=== PATIENT | female | born 1935 | race Caucasian/White ===

== ENCOUNTER → 2017-04-10 | Outpatient (CLI) | payer MEDICARE | END | disposition home or self-care (01) | LOC: KCIC US 11:57 | DX: Z12.31 Encounter for screening mammogram for malignant neoplasm of breast (principal); I65.22 Occlusion and stenosis of left carotid artery; Z87.891 Personal history of nicotine dependence | CPT/HCPCS: 77067; 93880 ==

== ENCOUNTER 2017-12-15 01:34 | Inpatient (IN) | payer MEDICARE ==
[~2017-12-15] VITALS: Ht 157.5 cm; Wt 61.7 kg
[2017-12-15] MEDS ORDERED: HYDROcodone/APAP 5/325MG 1 TAB TABLET PO ONE (03:00)
[2017-12-15] MEDS ORDERED: ONDANSETRON ODT 4 MG TAB.RAPDIS. PO ONE (03:00)
--- NOTE | 2017-12-15 04:08 | RAD ---
INDICATION: SEVERE RIGHT HIP PAIN POST FALL COMPARISON: Plain film from earlier same day TECHNIQUE: Axial CT images obtained through the pelvis without contrast. One or more of the following individualized dose reduction techniques were utilized for this examination: 1. Automated exposure control; 2. Adjustment of the mA and/or kV according to patient size; 3. Use of iterative reconstruction technique. FINDINGS: Mildly displaced right inferior pubic ramus fracture. There is also lucency through the anterior aspect of the right acetabulum from additional fracture site. Some thickening of the adjacent musculature which could be secondary to associated blood. No evidence of dislocation. Degenerative changes bilateral hips. Degenerative changes of lower lumbar spine partially visualized scoliotic curvature. Colonic diverticulosis. Bladder is distended at time of exam. Severe calcific atherosclerosis. IMPRESSION: 1. Right inferior pubic ramus fracture as well as fracture through the anterior aspect of the right acetabulum. There is also thickening of the adjacent musculature including the right obturator externus which measures up to 3 cm in thickness in comparison to 2 cm in thickness on the left which is likely secondary to blood associated with the adjacent fracture. Electronically signed by: Raghavendra Bond MD (12/15/2017 4:04 AM) [facility]
[2017-12-15] MEDS ORDERED: fentaNYL PF VIAL 100 MCG/2 ML VIAL ONE (04:36)
--- NOTE | 2017-12-15 04:48 | PHYS DOC ---
Past Medical History Past Medical History: Hypertension, Other Additional Past Medical Histor: CHRONIC BACK/HIP PAIN Past Surgical History: Hysterectomy, Other Additional Past Surgical Histo: FEET, MULTIPLE BREAST BIOPSIES Alcohol Use: Occasionally Drug Use: None Adult General Chief Complaint Chief Complaint: MECHANICAL FALL HPI HPI Patient is a 82 year old female brought in by ambulance with a chief complaint of mechanical fall apparently she went down she thinks she tripped she is not sure she did not lose consciousness she doesn't think she hit her head. She is not on any blood thinners. She was able to crawl to her phone and contact her daughter who eventually was able to come over and help her out. She was complaining of moderate to severe right hip pain worse with palpation and movement nonradiating described as sharp worse with trying to stand on it which she did briefly after the event. No other exacerbating or alleviating factors no numbness or tingling no abdominal pain no chest pain no neck pain no headache Review of Systems Review of Systems Constitutional: Denies fever or chills [] Eyes: Denies change in visual acuity, redness, or eye pain [] HENT: Denies nasal congestion or sore throat [] Respiratory: Denies cough or shortness of breath [] Cardiovascular: No additional information not addressed in HPI [] GI: Denies abdominal pain, nausea, vomiting, bloody stools or diarrhea [] : Denies dysuria or hematuria [] Musculoskeletal: Integument: Denies rash or skin lesions [] Neurologic: Denies headache, focal weakness or sensory changes [] All other systems were reviewed and found to be within normal limits, except as documented in this note. Current Medications Current Medications Current Medications Medications (Trade) Dose Ordered Sig/Severiano Start Time Stop Time Status Last Admin Dose Admin Acetaminophen/ Hydrocodone Bitart (Lortab 5/325) 2 tab 1X ONCE 12/15/17 03:00 12/15/17 03:01 DC 12/15/17 03:07 2 TAB Fentanyl Citrate (Fentanyl 2ml Vial) 100 mcg STK-MED ONCE 12/15/17 04:36 12/15/17 04:38 DC Ondansetron HCl (Zofran Odt) 4 mg 1X ONCE 12/15/17 03:00 12/15/17 03:01 DC 12/15/17 03:07 4 MG Sodium Chloride 1,000 ml @ 75 mls/hr [id number] 10/1/18 05:00 12/16/17 04:59 Allergies Allergies Allergies Coded Allergies Type Severity Reaction Last Updated Verified nitrofurantoin Allergy Intermediate 12/15/17 Yes Physical Exam Physical Exam Constitutional: Well developed, well nourished, no acute distress, non-toxic appearance. [] HENT: Normocephalic, atraumatic, bilateral external ears normal, oropharynx moist, no oral exudates, nose normal. [] Eyes: PERRLA, EOMI, conjunctiva normal, no discharge. [] Neck: Normal range of motion, no tenderness, supple, no stridor. [] Cardiovascular:Heart rate regular rhythm, no murmur [] Lungs & Thorax: Bilateral breath sounds clear to auscultation [] Abdomen: Bowel sounds normal, soft, no tenderness, no masses, no pulsatile masses. [] Skin: Warm, dry, no erythema, no rash. [] Back: No tenderness, no CVA tenderness. [] Extremities: REDUCED ROM RIGHT HIP DUE TO PAIN. NO OBVIOUS TRAUMA SEEN. PULSES PEDAL PRESENT. SENSATION INTACT DISTALLY Neurologic: Alert and oriented X 3, normal motor function, normal sensory function, no focal deficits noted. [] Psychologic: Affect normal, judgement normal, mood normal. [] Current Patient Data Vital Signs Vital Signs Date Time Temp Pulse Resp B/P (MAP) Pulse Ox O2 Delivery O2 Flow Rate FiO2 12/15/17 03:07 18 98 12/15/17 01:49 97.8 87 133/66 (88) Room Air 97.8 EKG EKG [] Radiology/Procedures Radiology/Procedures [] Impressions: MY INTERP PLAIN FILM, POSSIBLE INFERIOR PUBIC RAMUS FX, NO OTHER ACUTE FX IDENTIFIED DUE TO HIGH CLINICAL CONCERN FOR HIP FX, ORDERED CT. D/W RADIOLOGIST, THE ACETABULAR FX IS NONDISPLACED HE FEELS. CT SCAN" IMPRESSION: 1. Right inferior pubic ramus fracture as well as fracture through the anterior aspect of the right acetabulum. There is also thickening of the adjacent musculature including the right obturator externus which measures up to 3 cm in thickness in comparison to 2 cm in thickness on the left which is likely secondary to blood associated with the adjacent fracture. Electronically signed by: Mattie Johnston MD (12/15/2017 4:04 AM) [facility] [place] DICTATED and SIGNED BY: MATTIE JOHNSTON MD DATE: 12/15/17 0357 Course & Med Decision Making Course & Med Decision Making Pertinent Labs and Imaging studies reviewed. (See chart for details) 82 YO F S/P FALL PW HIP PAIN FOUND TO HAVE INFERIOR PUBIC RAMUS AND ACETABULAR FX. Per the radiologist the acetabular fractures mostly nondisplaced. At this time plan for lab work and admission to the hospital for pain control and orthopedic consultation. Dragon Disclaimer Dragon Disclaimer This electronic medical record was generated, in whole or in part, using a voice recognition dictation system. Departure Departure Impression: Primary Impression: Pelvic fracture Disposition: ADMITTED INPATIENT Admitting Physician: Rizwana Flores Condition: STABLE Referrals: MEMO SINGH MD (PCP) ANTONIO CHAVEZ MD Dec 15, 2017 04:48
[2017-12-15 04:58] LABS: BASO % 0 % (0-3); EOS % 0 % (0-3); HEMATOCRIT 39.3 % (36.0-47.0); HEMOGLOBIN 13.9 g/dL (12.0-15.5); LYMPH # 0.7 x10^3/uL (1.0-4.8); LYMPH % 7 % (24-48); MEAN CORPUSCULAR HEMOGLOBIN 35 pg (25-35); MEAN CORPUSCULAR HGB CONC 35 g/dL (31-37); MEAN CORPUSCULAR VOLUME 99 fL (79-100); MONO # 0.7 x10^3/uL (0.0-1.1); MONO % 7 % (0-9); NEUT # 9.1 x10^3uL (1.8-7.7); NEUT % 86 % (31-73); PLATELET COUNT 192 x10^3/uL (140-400); RED BLOOD COUNT 3.95 x10^6/uL (3.50-5.40); RED CELL DISTRIBUTION WIDTH 12.5 % (11.5-14.5); WHITE BLOOD COUNT 10.6 x10^3/uL (4.0-11.0)
[2017-12-15] MEDS ORDERED: fentaNYL PF VIAL 100 MCG/2 ML VIAL IV ONE (05:00)
[2017-12-15] MEDS ORDERED: IV NORMAL SALINE 1000ML BAG 1,000 ML IV ONE (05:00)
[2017-12-15] MEDS: IV NORMAL SALINE 1000ML BAG 1,000 ML IV SCH ×2 (05:00→08:25)
[2017-12-15 05:35] VITALS: BP 127/74
[2017-12-15 05:39] LABS: CREATININE 0.9 mg/dL (0.6-1.0); GFR 59.9; POTASSIUM 3.2 mmol/L (3.5-5.1)
[2017-12-15 05:45] LABS: ALBUMIN 3.8 g/dL (3.4-5.0); ALBUMIN/GLOBULIN RATIO 1.3 (1.0-1.7); TOTAL BILIRUBIN 0.6 mg/dL (0.2-1.0); TOTAL PROTEIN 6.8 g/dL (6.4-8.2)
[2017-12-15] MEDS ORDERED: ASPI81TA59 PO (06:31)
[2017-12-15] MEDS ORDERED: LOSA1TAB22 PO (06:31)
[2017-12-15] MEDS ORDERED: MULT1TAB52 PO (06:31)
[2017-12-15] MEDS ORDERED: CALC-98 PO (06:31)
[2017-12-15] MEDS: fentaNYL PF VIAL 100 MCG/2 ML VIAL IV PRN ×4 (06:35→13:07)
[2017-12-15 07:00] VITALS: BP 114/67
--- NOTE | 2017-12-15 07:44 | RAD ---
Portable right hip, 2 views, 12/15/2017: HISTORY: Fall, hip pain There is mild degenerative change at the right hip joint. No acute hip fracture or dislocation is identified. Slight deformity of the inferior pubic ramus is probably due to old trauma. No definite acute fracture line is seen. IMPRESSION: 1. Slight deformity of the inferior pubic ramus is probably due to old trauma. An acute nondisplaced fracture cannot be entirely excluded. 2. Mild degenerative change at the right hip joint. Electronically signed by: Kane Hudson MD (12/15/2017 7:40 AM) [facility]
[2017-12-15 08:43] LABS: BILIRUBIN,URINE NEGATIVE (NEG); CLARITY,URINE CLEAR; COLOR,URINE YELLOW; NITRITE,URINE NEGATIVE (NEG); PROTEIN,URINE NEGATIVE (NEG-TRACE); UROBILINOGEN,URINE 0.2 mg/dL (0.2 mg/dL)
[2017-12-15 08:47] LABS: % BANDS 13 % (0-9); % LYMPHS 6 % (24-48); % MONOS 7 % (0-10); % SEGS 74 % (35-66); PLT ESTIMATE ADEQUATE (ADEQUATE)
[2017-12-15 08:55] LABS: SQUAMOUS EPITHELIAL CELL,UR FEW /LPF
[2017-12-15 08:58] LABS: BACTERIA,URINE MODERATE /HPF (0-FEW); RBC,URINE OCC /HPF (0-2)
[2017-12-15 11:00] VITALS: BP 148/82
[2017-12-15] MEDS ORDERED: HYDROcodone/APAP 5/325MG 1 TAB TABLET PO PRN (12:15)
[2017-12-15] MEDS: MULTIVITAMIN with MINERAL TABLET. PO SCH (12:15)
[2017-12-15] MEDS: ASPIRIN CHEWABLE 81 MG TABLET. PO SCH (12:15)
[2017-12-15] MEDS ORDERED: ONDANSETRON PF 4 MG/2 ML VIAL. IV PRN (12:15)
[2017-12-15] MEDS ORDERED: traMADol 50 MG TABLET PO PRN (12:15)
[2017-12-15] MEDS: LOSARTAN POTASSIUM 50 MG TABLET. PO SCH (12:15)
[2017-12-15] MEDS ORDERED: ACETAMINOPHEN 325 MG TABLET. PO PRN (12:15)
[2017-12-15] MEDS: hydroCHLOROthiazide 25 MG TABLET PO SCH (12:15)
[2017-12-15] MEDS ORDERED: DOCUSATE SODIUM 100 MG CAPSULE. PO PRN (12:15)
[2017-12-15] MEDS: HYDROcodone/APAP 5/325MG 1 TAB TABLET PO PRN ×3 (12:16→20:41)
[2017-12-15 15:00] VITALS: BP 126/51
--- NOTE | 2017-12-15 15:32 | PDOC1 ---
History and Physical Date of Admission Date of Admission 12/15/17 Identification/Chief Complaint Chief Complaint fall Source Source: Chart review, Patient History of Present Illness History of Present Illness HPI Patient is a 82 year old female brought in by ambulance with a chief complaint of mechanical fall.. poor historian. Pt said she was standing on the tile in the [place] ,then fell on the floor, cannot tell me how or hit where. She denies syncope, has some bruise on knee and rt elbow. She crawled to get phone to call her daughter who helped her to the bed, and called EMS. pt has severe pelvic pain and could not stand up. Denies fever, chills, sob, chest pain. CT showed rt inferior ramus fx. Dirty UA, denies dysuria, has frequent urination but said drinks lots of water. denies urgency. Past Medical History Cardiovascular: HTN Past Surgical History Past Surgical History joint sx Past Surgical History: Hysterectomy Family History Family History: Hypertension Social History Smoke: No ALCOHOL: none Drugs: None Current Medications Current Medications Current Medications Medications (Trade) Dose Ordered Sig/Severiano Start Time Stop Time Status Last Admin Dose Admin Acetaminophen (Tylenol) 650 mg PRN Q6HRS PRN 12/15/17 12:15 Acetaminophen/ Hydrocodone Bitart (Lortab 5/325) 1 tab PRN Q4HRS PRN 12/15/17 12:15 Cancel Aspirin (Children'S Aspirin) 81 mg DAILY 12/15/17 12:30 12/15/17 12:15 81 MG Docusate Sodium (Colace) 100 mg PRN DAILY PRN 12/15/17 12:15 Fentanyl Citrate (Fentanyl 2ml Vial) 50 mcg PRN Q2HR PRN 12/15/17 06:15 12/16/17 06:14 12/15/17 13:07 50 MCG Hydrochlorothiazide (Hydrodiuril) 25 mg DAILY 12/15/17 12:30 12/15/17 12:15 25 MG Influenza Virus Vaccine (Afluria Trivalent [id number] Syringe) 0.5 ml ONCE ONCE 12/15/17 09:00 12/15/17 09:01 DC Losartan Potassium (Cozaar) 100 mg DAILY 12/15/17 12:30 12/15/17 12:15 100 MG Morphine Sulfate (Morphine Sulfate) 2 mg PRN Q2HR PRN 12/15/17 12:15 Multivitamins (Thera M Plus) 1 tab DAILY 12/15/17 12:30 12/15/17 12:15 1 TAB Ondansetron HCl (Zofran Odt) 4 mg 1X ONCE 12/15/17 03:00 12/15/17 03:01 DC 12/15/17 03:07 4 MG Ondansetron HCl (Zofran) 4 mg PRN Q6HRS PRN 12/15/17 12:15 Oxycodone/ Acetaminophen (Percocet 5/325) 1 tab PRN Q4HRS PRN 12/15/17 12:15 Sodium Chloride 1,000 ml @ 75 mls/hr [id number] 12/15/17 05:00 12/16/17 04:59 12/15/17 08:25 75 MLS/HR Tramadol HCl (Ultram) 50 mg PRN Q6HRS PRN 12/15/17 12:15 Allergies Allergies Allergies Coded Allergies Type Severity Reaction Last Updated Verified nitrofurantoin Allergy Intermediate 12/15/17 Yes ROS Review of System CONSTITUTIONAL: No fever or chills EYES: No recent changes SKIN: No rash or itching CARDIOVASCULAR: No chest pain, syncope, palpitations, or edema RESPIRATORY: No SOB or cough GASTROINTESTINAL: No nausea, vomiting or abdominal pain NEUROLOGICAL: No headaches or weakness ENDOCRINE: No cold or heat intolerance GENITOURINARY: No urgency or frequency of urination MUSCULOSKELETAL: No back pain or joint pain LYMPHATICS: No enlarged lymph nodes PSYCHIATRIC: No anxiety or depression Physical Exam Physical Exam GEN.: No apparent distress. Alert and oriented. HEENT: Head is normocephalic, atraumatic NECK: Supple. LUNGS: Clear to auscultation. HEART: RRR, S1, S2 present. Peripheral pulses intact ABDOMEN: Soft, nontender. Positive bowel sounds. severe rt side pelvic tenderness. EXTREMITIES: Without any cyanosis. NEUROLOGIC: Normal speech, normal tone PSYCHIATRIC: Normal affect, normal mood. SKIN: No ulcerations Vitals Vitals Vital Signs Date Time Temp Pulse Resp B/P (MAP) Pulse Ox O2 Delivery O2 Flow Rate FiO2 12/15/17 13:37 Room Air 12/15/17 12:15 100 148/82 12/15/17 11:08 2.0 12/15/17 11:00 97.7 18 100 97.7 Labs Labs Laboratory Tests Test 12/15/17 04:45 12/15/17 08:25 White Blood Count 10.6 x10^3/uL (4.0-11.0) Red Blood Count 3.95 x10^6/uL (3.50-5.40) Hemoglobin 13.9 g/dL (12.0-15.5) Hematocrit 39.3 % (36.0-47.0) Mean Corpuscular Volume 99 fL (79-100) Mean Corpuscular Hemoglobin 35 pg (25-35) Mean Corpuscular Hemoglobin Concent 35 g/dL (31-37) Red Cell Distribution Width 12.5 % (11.5-14.5) Platelet Count 192 x10^3/uL (140-400) Neutrophils (%) (Auto) 86 % (31-73) Lymphocytes (%) (Auto) 7 % (24-48) Monocytes (%) (Auto) 7 % (0-9) Eosinophils (%) (Auto) 0 % (0-3) Basophils (%) (Auto) 0 % (0-3) Neutrophils # (Auto) 9.1 x10^3uL (1.8-7.7) Lymphocytes # (Auto) 0.7 x10^3/uL (1.0-4.8) Monocytes # (Auto) 0.7 x10^3/uL (0.0-1.1) Eosinophils # (Auto) 0.0 x10^3/uL (0.0-0.7) Basophils # (Auto) 0.0 x10^3/uL (0.0-0.2) Segmented Neutrophils % 74 % (35-66) Band Neutrophils % 13 % (0-9) Lymphocytes % 6 % (24-48) Monocytes % 7 % (0-10) Platelet Estimate Adequate (ADEQUATE) Sodium Level 133 mmol/L (136-145) Potassium Level 3.2 mmol/L (3.5-5.1) Chloride Level 93 mmol/L (98-107) Carbon Dioxide Level 23 mmol/L (21-32) Anion Gap 17 (6-14) Blood Urea Nitrogen 14 mg/dL (7-20) Creatinine 0.9 mg/dL (0.6-1.0) Estimated GFR (Cockcroft-Gault) 59.9 BUN/Creatinine Ratio 16 (6-20) Glucose Level 120 mg/dL (70-99) Calcium Level 9.0 mg/dL (8.5-10.1) Total Bilirubin 0.6 mg/dL (0.2-1.0) Aspartate Amino Transf (AST/SGOT) 37 U/L (15-37) Alanine Aminotransferase (ALT/SGPT) 56 U/L (14-59) Alkaline Phosphatase 68 U/L (46-116) Creatine Kinase 392 U/L (26-192) Total Protein 6.8 g/dL (6.4-8.2) Albumin 3.8 g/dL (3.4-5.0) Albumin/Globulin Ratio 1.3 (1.0-1.7) Urine Collection Type Unknown Urine Color Yellow Urine Clarity Clear Urine pH 6.0 Urine Specific Whiteside 1.010 Urine Protein Negative mg/dL (NEG-TRACE) Urine Glucose (UA) Negative mg/dL (NEG) Urine Ketones (Stick) 15 mg/dL (NEG) Urine Blood Negative (NEG) Urine Nitrite Negative (NEG) Urine Bilirubin Negative (NEG) Urine Urobilinogen Dipstick 0.2 mg/dL (0.2 mg/dL) Urine Leukocyte Esterase Trace (NEG) Urine RBC Occ /HPF (0-2) Urine WBC 1-4 /HPF (0-4) Urine Squamous Epithelial Cells Few /LPF Urine Transitional Epithelial Cells Mod /LPF Urine Renal Epithelial Cells Few /LPF Urine Bacteria Moderate /HPF (0-FEW) Urine Mucus Slight /LPF Laboratory Tests Test 12/15/17 04:45 12/15/17 08:25 White Blood Count 10.6 x10^3/uL (4.0-11.0) Red Blood Count 3.95 x10^6/uL (3.50-5.40) Hemoglobin 13.9 g/dL (12.0-15.5) Hematocrit 39.3 % (36.0-47.0) Mean Corpuscular Volume 99 fL (79-100) Mean Corpuscular Hemoglobin 35 pg (25-35) Mean Corpuscular Hemoglobin Concent 35 g/dL (31-37) Red Cell Distribution Width 12.5 % (11.5-14.5) Platelet Count 192 x10^3/uL (140-400) Neutrophils (%) (Auto) 86 % (31-73) Lymphocytes (%) (Auto) 7 % (24-48) Monocytes (%) (Auto) 7 % (0-9) Eosinophils (%) (Auto) 0 % (0-3) Basophils (%) (Auto) 0 % (0-3) Neutrophils # (Auto) 9.1 x10^3uL (1.8-7.7) Lymphocytes # (Auto) 0.7 x10^3/uL (1.0-4.8) Monocytes # (Auto) 0.7 x10^3/uL (0.0-1.1) Eosinophils # (Auto) 0.0 x10^3/uL (0.0-0.7) Basophils # (Auto) 0.0 x10^3/uL (0.0-0.2) Segmented Neutrophils % 74 % (35-66) Band Neutrophils % 13 % (0-9) Lymphocytes % 6 % (24-48) Monocytes % 7 % (0-10) Platelet Estimate Adequate (ADEQUATE) Sodium Level 133 mmol/L (136-145) Potassium Level 3.2 mmol/L (3.5-5.1) Chloride Level 93 mmol/L (98-107) Carbon Dioxide Level 23 mmol/L (21-32) Anion Gap 17 (6-14) Blood Urea Nitrogen 14 mg/dL (7-20) Creatinine 0.9 mg/dL (0.6-1.0) Estimated GFR (Cockcroft-Gault) 59.9 BUN/Creatinine Ratio 16 (6-20) Glucose Level 120 mg/dL (70-99) Calcium Level 9.0 mg/dL (8.5-10.1) Total Bilirubin 0.6 mg/dL (0.2-1.0) Aspartate Amino Transf (AST/SGOT) 37 U/L (15-37) Alanine Aminotransferase (ALT/SGPT) 56 U/L (14-59) Alkaline Phosphatase 68 U/L (46-116) Creatine Kinase 392 U/L (26-192) Total Protein 6.8 g/dL (6.4-8.2) Albumin 3.8 g/dL (3.4-5.0) Albumin/Globulin Ratio 1.3 (1.0-1.7) Urine Collection Type Unknown Urine Color Yellow Urine Clarity Clear Urine pH 6.0 Urine Specific Whiteside 1.010 Urine Protein Negative mg/dL (NEG-TRACE) Urine Glucose (UA) Negative mg/dL (NEG) Urine Ketones (Stick) 15 mg/dL (NEG) Urine Blood Negative (NEG) Urine Nitrite Negative (NEG) Urine Bilirubin Negative (NEG) Urine Urobilinogen Dipstick 0.2 mg/dL (0.2 mg/dL) Urine Leukocyte Esterase Trace (NEG) Urine RBC Occ /HPF (0-2) Urine WBC 1-4 /HPF (0-4) Urine Squamous Epithelial Cells Few /LPF Urine Transitional Epithelial Cells Mod /LPF Urine Renal Epithelial Cells Few /LPF Urine Bacteria Moderate /HPF (0-FEW) Urine Mucus Slight /LPF VTE Prophylaxis Ordered VTE Prophylaxis Devices: Yes VTE Pharmacological Prophylaxi: Yes Assessment/Plan Assessment/Plan traumatic rt inferior ramus fx from fall HTN hypokalemia chronic back pain plan: fu with ortho, no sx planned cont home meds replete K PAIN CONTRol told her if too much pain to move and cannot use bed broderick, will do han but needs to understand high risk for UTI, daughter not want han hold abx for now PTOT check vitd sw for rehab TONY ECHAVARRIA MD Dec 15, 2017 15:32
[2017-12-15] MEDS ORDERED: POTASSIUM CHLORIDE 20 MEQ TABLET.ER. PO ONE (16:00)
[2017-12-15 19:00] VITALS: BP 137/68
[2017-12-15] MEDS: MORPHINE SULFATE 2 MG/ML VIAL. IV PRN (22:05)
[2017-12-15 22:39] VITALS: BP 158/74
[2017-12-16] MEDS: HYDROcodone/APAP 5/325MG 1 TAB TABLET PO PRN ×5 (01:32→22:20)
[2017-12-16 03:00] VITALS: BP 140/79
[2017-12-16 03:12] LABS: BASO # 0.1 x10^3/uL (0.0-0.2); BASO % 1 % (0-3); EOS # 0.1 x10^3/uL (0.0-0.7); EOS % 1 % (0-3); HEMATOCRIT 38.2 % (36.0-47.0); HEMOGLOBIN 13.7 g/dL (12.0-15.5); LYMPH # 0.9 x10^3/uL (1.0-4.8); LYMPH % 14 % (24-48); MEAN CORPUSCULAR HEMOGLOBIN 36 pg (25-35); MEAN CORPUSCULAR HGB CONC 36 g/dL (31-37); MEAN CORPUSCULAR VOLUME 101 fL (79-100); MONO # 0.5 x10^3/uL (0.0-1.1); MONO % 8 % (0-9); NEUT # 4.8 x10^3uL (1.8-7.7); NEUT % 76 % (31-73); PLATELET COUNT 155 x10^3/uL (140-400); RED CELL DISTRIBUTION WIDTH 12.6 % (11.5-14.5); WHITE BLOOD COUNT 6.4 x10^3/uL (4.0-11.0)
[2017-12-16 03:29] LABS: CALCIUM 8.7 mg/dL (8.5-10.1); CREATININE 0.9 mg/dL (0.6-1.0); GFR 59.9; POTASSIUM 4.4 mmol/L (3.5-5.1)
[2017-12-16] MEDS: MORPHINE SULFATE 2 MG/ML VIAL. IV PRN ×3 (06:47→20:19)
[2017-12-16 07:00] VITALS: BP 151/67
[2017-12-16] MEDS: ASPIRIN CHEWABLE 81 MG TABLET. PO SCH (09:00)
[2017-12-16] MEDS: hydroCHLOROthiazide 25 MG TABLET PO SCH (09:00)
[2017-12-16] MEDS: LOSARTAN POTASSIUM 50 MG TABLET. PO SCH (09:00)
[2017-12-16] MEDS: MULTIVITAMIN with MINERAL TABLET. PO SCH (09:00)
--- NOTE | 2017-12-16 09:09 | PDOC2 ---
CONSULT Date of Consult Date of Consult DATE: 12/16/17 TIME: 09:05 Reason for Consult Reason for Consult: Right-sided pelvis fracture Referring Physician Referring Physician: Екатерина Identification/Chief Complaint Chief Complaint Right hip pain Source Source: Patient History of Present Illness Reason for Visit: Patient is a very pleasant 82-year-old female who had a ground-level fall, she denies preceding symptoms. She noted immediate pain and inability to ambulate secondary to right-sided hip pain. She tells me she has had some lateral hip pain at both of her hips and was undergoing care administrative tech recently for this. This pain she has now feels tingly different. It is worse with any movement or sitting. It is also worse with any attempted weightbearing. Is a little bit better at rest. She denies any abnormal sensations shooting down her legs into her toes. The pain does radiate down her thigh little ways at times. Past Medical History Cardiovascular: HTN Past Surgical History Past Surgical History: Hysterectomy Family History Family History: Hypertension Social History No ALCOHOL: none Drugs: None Current Medications Current Medications Current Medications Acetaminophen/ Hydrocodone Bitart (Lortab 5/325) 2 tab 1X ONCE PO Last administered on 12/15/17at 03:07; Start 12/15/17 at 03:00; Stop 12/15/17 at 03:01 ; Status DC Ondansetron HCl (Zofran Odt) 4 mg 1X ONCE PO Last administered on 12/15/17at 03 :07; Start 12/15/17 at 03:00; Stop 12/15/17 at 03:01; Status DC Fentanyl Citrate (Fentanyl 2ml Vial) 50 mcg 1X ONCE IV Last administered on at 04:50; Start 12/15/17 at 05:00; Stop 12/15/17 at 05:01; Status DC Sodium Chloride 1,000 ml @ 1,000 mls/hr 1X ONCE IV Last administered on at 04:51; Start 12/15/17 at 05:00; Stop 12/15/17 at 05:59; Status DC Fentanyl Citrate (Fentanyl 2ml Vial) 100 mcg STK-MED ONCE .ROUTE ; Start at 04:36; Stop 12/15/17 at 04:38; Status DC Sodium Chloride 1,000 ml @ 75 mls/hr [id number] IV Last administered on at 08:25; Start 12/15/17 at 05:00; Stop 12/16/17 at 04:59; Status DC Fentanyl Citrate (Fentanyl 2ml Vial) 50 mcg PRN Q2HR PRN IV SEVERE PAIN Last administered on 12/15/17at 13:07; Start 12/15/17 at 06:15; Stop 12/15/17 at 16:24 ; Status DC Influenza Virus Vaccine (Afluria Trivalent [id number] Syringe) 0.5 ml ONCE ONCE VAX IM ; Start 12/15/17 at 09:00; Stop 12/15/17 at 09:01; Status DC Acetaminophen/ Hydrocodone Bitart (Lortab 5/325) 1 tab PRN Q4HRS PRN PO MOD TO SEVERE PAIN, 1st CHOICE Last administered on 12/16/17at 09:01; Start 12/15/17 at 12:00 Aspirin (Children'S Aspirin) 81 mg DAILY PO Last administered on 12/16/17at 09: 00; Start 12/15/17 at 12:30 Losartan Potassium (Cozaar) 100 mg DAILY PO Last administered on 12/16/17at 09: 00; Start 12/15/17 at 12:30 Multivitamins (Thera M Plus) 1 tab DAILY PO Last administered on 12/16/17at 09: 00; Start 12/15/17 at 12:30 Hydrochlorothiazide (Hydrodiuril) 25 mg DAILY PO Last administered on at 09:00; Start 12/15/17 at 12:30 Acetaminophen (Tylenol) 650 mg PRN Q6HRS PRN PO FEVER; Start 12/15/17 at 12:15 Ondansetron HCl (Zofran) 4 mg PRN Q6HRS PRN IV NAUSEA/VOMITING; Start 12/15/17 at 12:15 Morphine Sulfate (Morphine Sulfate) 2 mg PRN Q2HR PRN IV SEVERE PAIN Last administered on 12/16/17at 06:48; Start 12/15/17 at 12:15 Tramadol HCl (Ultram) 50 mg PRN Q6HRS PRN PO MILD TO MODERATE PAIN; Start 12/15 at 12:15 Docusate Sodium (Colace) 100 mg PRN DAILY PRN PO CONSTIPATION; Start 12/15/17 at 12:15 Acetaminophen/ Hydrocodone Bitart (Lortab 5/325) 1 tab PRN Q4HRS PRN PO PAIN; Start 12/15/17 at 12:15; Status Cancel Oxycodone/ Acetaminophen (Percocet 5/325) 1 tab PRN Q4HRS PRN PO MOD TO SEVERE PAIN, 2nd CHOICE; Start 12/15/17 at 12:15 Potassium Chloride (Klor-Con) 40 meq 1X ONCE PO Last administered on at 17:43; Start 12/15/17 at 16:00; Stop 12/15/17 at 16:01; Status DC Active Scripts Active Reported Calcium + Vitamin D Tablet (Calcium Carbonate/Vitamin D3) 1 Each Tablet 1 Each PO Multivitamins (Multivitamin) 1 Each Tablet 1 Tab PO DAILY Children's Aspirin (Aspirin) 81 Mg Tab.chew 81 Mg PO Losartan-Hctz 100-25 Mg Tab (Losartan/Hydrochlorothiazide) 1 Each Tablet 1 Tab PO DAILY Allergies Allergies: Coded Allergies: nitrofurantoin (Verified Allergy, Intermediate, 12/15/17) ROS General: No: Chills, Night Sweats, Fatigue, Malaise, Appetite, Other PSYCHOLOGICAL ROS: No: Anxiety, Behavioral Disorder, Concentration difficultie , Decreased libido, Depression, Disorientation, Hallucinations, Hostility, Irritablity, Memory difficulties, Mood Swings, Obsessive thoughts, Physical abuse, Sexual abuse, Sleep disturbances, Suicidal ideation, Other Eyes: No Blurry vision, No Decreased vision, No Double vision, No Dry eyes, No Excessive tearing, No Eye Pain, No Itchy Eyes, No Loss of vision, No Photophobia , No Scotomata, No Uses contacts, No Uses glasses, No Other HEENT: No: Heacaches, Visual Changes, Hearing change, Nasal congestion, Nasal discharge, Oral lesions, Sinus pain, Sore Throat, Epistaxis, Sneezing, Snoring, Tinnitus, Vertigo, Vocal changes, Other ALLERGY AND IMMUNOLOGY: No: Hives, Insect Bite Sensitivity, Itchy/Watery Eyes, Nasal Congestion, Post Nasal Drip, Seasonal Allergies, Other Hematological and Lymphatic: No: Bleeding Problems, Blood Clots, Blood Transfusions, Brusing, Night Sweats, Pallor, Swollen Lymph Nodes, Other ENDOCRINE: No: Breast Changes, Galactorrhea, Hair Pattern Changes, Hot Flashes , Malaise/lethargy, Mood Swings, Palpitations, Polydipsia/polyuria, Skin Changes , Temperature Intolerance, Unexpected Weight Changes, Other Respiratory: No: Cough, Hemoptysis, Orthopnea, Pleuritic Pain, Shortness of breath, SOB with excertion, Sputum Changes, Stridor, Tachypnea, Wheezing, Other Cardiovascular: No Chest Pain, No Palpitations, No Orthopnea, No Paroxysmal Noc. Dyspnea, No Edema, No Lt Headedness, No Other Gastrointestinal: No Nausea, No Vomiting, No Abdominal Pain, No Diarrhea, No Constipation, No Melena, No Hematochezia, No Other Genitourinary: No Dysuria, No Frequency, No Incontinence, No Hematuria, No Retention, No Discharge, No Urgency, No Pain, No Flank Pain, No Other, No , No , No , No , No , No , No Musculoskeletal: Yes Joint Pain, Yes Muscle Pain Neurological: No Behavorial Changes, No Bowel/Bladder ControlChng, No Confusion , No Dizziness, No Gait Disturbance, No Headaches, No Impaired Coord/balance, No Memory Loss, No Numbness/Tingling, No Seizures, No Speech Problems, No Tremors, No Visual Changes, No Weakness, No Other Skin: No Dry Skin, No Eczema, No Hair Changes, No Lumps, No Mole Changes, No Mottling, No Nail Changes, No Pruritus, No Rash, No Skin Lesion Changes, No Other, No Acne Physical Exam General: Alert, Oriented X3 HEENT: Atraumatic, EOMI Lungs: Other (respirations aren't labored with symmetric chest rise) Heart: Regular rate, No murmurs Abdomen: Soft, No tenderness Extremities: No edema, Other (dorsalis pedis 1+ and symmetric bilaterally) Skin: No rashes, No breakdown Neuro: Normal speech, Strength at 5/5 X4 ext, Sensation intact Psych/Mental Status: Mental status NL, Mood NL MUSCULOSKELETAL: Other (she has tenderness over her anterior right-sided hip. No tenderness posteriorly. Mild tenderness at greater trochanters. No tenderness knees feet or ankles. She has increased pain with any log rolling her right hip.) Vitals VITALS Vital Signs Date Time Temp Pulse Resp B/P (MAP) Pulse Ox O2 Delivery O2 Flow Rate FiO2 12/16/17 09:01 98 Room Air 12/16/17 09:00 84 151/67 12/16/17 07:00 98.6 18 98.6 12/16/17 03:00 2.0 Labs Labs Laboratory Tests Test 12/15/17 04:45 12/15/17 08:25 12/16/17 02:55 White Blood Count 10.6 x10^3/uL (4.0-11.0) 6.4 x10^3/uL (4.0-11.0) Red Blood Count 3.95 x10^6/uL (3.50-5.40) 3.80 x10^6/uL (3.50-5.40) Hemoglobin 13.9 g/dL (12.0-15.5) 13.7 g/dL (12.0-15.5) Hematocrit 39.3 % (36.0-47.0) 38.2 % (36.0-47.0) Mean Corpuscular Volume 99 fL (79-100) 101 fL (79-100) Mean Corpuscular Hemoglobin 35 pg (25-35) 36 pg (25-35) Mean Corpuscular Hemoglobin Concent 35 g/dL (31-37) 36 g/dL (31-37) Red Cell Distribution Width 12.5 % (11.5-14.5) 12.6 % (11.5-14.5) Platelet Count 192 x10^3/uL (140-400) 155 x10^3/uL (140-400) Neutrophils (%) (Auto) 86 % (31-73) 76 % (31-73) Lymphocytes (%) (Auto) 7 % (24-48) 14 % (24-48) Monocytes (%) (Auto) 7 % (0-9) 8 % (0-9) Eosinophils (%) (Auto) 0 % (0-3) 1 % (0-3) Basophils (%) (Auto) 0 % (0-3) 1 % (0-3) Neutrophils # (Auto) 9.1 x10^3uL (1.8-7.7) 4.8 x10^3uL (1.8-7.7) Lymphocytes # (Auto) 0.7 x10^3/uL (1.0-4.8) 0.9 x10^3/uL (1.0-4.8) Monocytes # (Auto) 0.7 x10^3/uL (0.0-1.1) 0.5 x10^3/uL (0.0-1.1) Eosinophils # (Auto) 0.0 x10^3/uL (0.0-0.7) 0.1 x10^3/uL (0.0-0.7) Basophils # (Auto) 0.0 x10^3/uL (0.0-0.2) 0.1 x10^3/uL (0.0-0.2) Segmented Neutrophils % 74 % (35-66) Band Neutrophils % 13 % (0-9) Lymphocytes % 6 % (24-48) Monocytes % 7 % (0-10) Platelet Estimate Adequate (ADEQUATE) Sodium Level 133 mmol/L (136-145) 138 mmol/L (136-145) Potassium Level 3.2 mmol/L (3.5-5.1) 4.4 mmol/L (3.5-5.1) Chloride Level 93 mmol/L (98-107) 103 mmol/L (98-107) Carbon Dioxide Level 23 mmol/L (21-32) 27 mmol/L (21-32) Anion Gap 17 (6-14) 8 (6-14) Blood Urea Nitrogen 14 mg/dL (7-20) 10 mg/dL (7-20) Creatinine 0.9 mg/dL (0.6-1.0) 0.9 mg/dL (0.6-1.0) Estimated GFR (Cockcroft-Gault) 59.9 59.9 BUN/Creatinine Ratio 16 (6-20) Glucose Level 120 mg/dL (70-99) 123 mg/dL (70-99) Calcium Level 9.0 mg/dL (8.5-10.1) 8.7 mg/dL (8.5-10.1) Total Bilirubin 0.6 mg/dL (0.2-1.0) Aspartate Amino Transf (AST/SGOT) 37 U/L (15-37) Alanine Aminotransferase (ALT/SGPT) 56 U/L (14-59) Alkaline Phosphatase 68 U/L (46-116) Creatine Kinase 392 U/L (26-192) Total Protein 6.8 g/dL (6.4-8.2) Albumin 3.8 g/dL (3.4-5.0) Albumin/Globulin Ratio 1.3 (1.0-1.7) Urine Collection Type Unknown Urine Color Yellow Urine Clarity Clear Urine pH 6.0 Urine Specific [place] 1.010 Urine Protein Negative mg/dL (NEG-TRACE) Urine Glucose (UA) Negative mg/dL (NEG) Urine Ketones (Stick) 15 mg/dL (NEG) Urine Blood Negative (NEG) Urine Nitrite Negative (NEG) Urine Bilirubin Negative (NEG) Urine Urobilinogen Dipstick 0.2 mg/dL (0.2 mg/dL) Urine Leukocyte Esterase Trace (NEG) Urine RBC Occ /HPF (0-2) Urine WBC 1-4 /HPF (0-4) Urine Squamous Epithelial Cells Few /LPF Urine Transitional Epithelial Cells Mod /LPF Urine Renal Epithelial Cells Few /LPF Urine Bacteria Moderate /HPF (0-FEW) Urine Mucus Slight /LPF 25-Hydroxy Vitamin D Total 48.6 ng/mL (30-100) Laboratory Tests Test 12/16/17 02:55 White Blood Count 6.4 x10^3/uL (4.0-11.0) Red Blood Count 3.80 x10^6/uL (3.50-5.40) Hemoglobin 13.7 g/dL (12.0-15.5) Hematocrit 38.2 % (36.0-47.0) Mean Corpuscular Volume 101 fL (79-100) Mean Corpuscular Hemoglobin 36 pg (25-35) Mean Corpuscular Hemoglobin Concent 36 g/dL (31-37) Red Cell Distribution Width 12.6 % (11.5-14.5) Platelet Count 155 x10^3/uL (140-400) Neutrophils (%) (Auto) 76 % (31-73) Lymphocytes (%) (Auto) 14 % (24-48) Monocytes (%) (Auto) 8 % (0-9) Eosinophils (%) (Auto) 1 % (0-3) Basophils (%) (Auto) 1 % (0-3) Neutrophils # (Auto) 4.8 x10^3uL (1.8-7.7) Lymphocytes # (Auto) 0.9 x10^3/uL (1.0-4.8) Monocytes # (Auto) 0.5 x10^3/uL (0.0-1.1) Eosinophils # (Auto) 0.1 x10^3/uL (0.0-0.7) Basophils # (Auto) 0.1 x10^3/uL (0.0-0.2) Sodium Level 138 mmol/L (136-145) Potassium Level 4.4 mmol/L (3.5-5.1) Chloride Level 103 mmol/L (98-107) Carbon Dioxide Level 27 mmol/L (21-32) Anion Gap 8 (6-14) Blood Urea Nitrogen 10 mg/dL (7-20) Creatinine 0.9 mg/dL (0.6-1.0) Estimated GFR (Cockcroft-Gault) 59.9 Glucose Level 123 mg/dL (70-99) Calcium Level 8.7 mg/dL (8.5-10.1) 25-Hydroxy Vitamin D Total 48.6 ng/mL (30-100) Images Images Hip and pelvis x-rays as well as pelvis CAT scan were interpreted by myself. Reports for the studies were also reviewed. She has right-sided pubic root fracture and inferior rami fracture. Assessment/Plan Assessment/Plan I did discuss her fractures with her and her daughter and answered their questions. I recommend toe-touch to partial weightbearing with a walker. I would also recommend anticoagulation. I would anticipate she will need placement. SADAF CASTELLANOS II, MD Dec 16, 2017 09:09
[2017-12-16 11:00] VITALS: BP 115/52
--- NOTE | 2017-12-16 12:27 | PDOC ---
PROGRESS NOTES Chief Complaint Chief Complaint fall traumatic rt inferior ramus fx, pelvis and pain HTN hypokalemia chronic back pain History of Present Illness History of Present Illness fu with ortho, cont home meds pt and ot and rehab is assist to stand SNU likely Vitals Vitals Vital Signs Date Time Temp Pulse Resp B/P (MAP) Pulse Ox O2 Delivery O2 Flow Rate FiO2 12/16/17 11:00 98.6 79 18 115/52 (73) 96 Room Air 98.6 12/16/17 03:00 2.0 Physical Exam General: Alert, Oriented X3 Heart: Regular rate, No murmurs Lungs: Clear Abdomen: Soft, No tenderness Extremities: No edema, Other (dorsalis pedis 1+ and symmetric bilaterally) Skin: No rashes, No breakdown Labs LABS Laboratory Tests Test 12/16/17 02:55 White Blood Count 6.4 x10^3/uL (4.0-11.0) Red Blood Count 3.80 x10^6/uL (3.50-5.40) Hemoglobin 13.7 g/dL (12.0-15.5) Hematocrit 38.2 % (36.0-47.0) Mean Corpuscular Volume 101 fL (79-100) Mean Corpuscular Hemoglobin 36 pg (25-35) Mean Corpuscular Hemoglobin Concent 36 g/dL (31-37) Red Cell Distribution Width 12.6 % (11.5-14.5) Platelet Count 155 x10^3/uL (140-400) Neutrophils (%) (Auto) 76 % (31-73) Lymphocytes (%) (Auto) 14 % (24-48) Monocytes (%) (Auto) 8 % (0-9) Eosinophils (%) (Auto) 1 % (0-3) Basophils (%) (Auto) 1 % (0-3) Neutrophils # (Auto) 4.8 x10^3uL (1.8-7.7) Lymphocytes # (Auto) 0.9 x10^3/uL (1.0-4.8) Monocytes # (Auto) 0.5 x10^3/uL (0.0-1.1) Eosinophils # (Auto) 0.1 x10^3/uL (0.0-0.7) Basophils # (Auto) 0.1 x10^3/uL (0.0-0.2) Sodium Level 138 mmol/L (136-145) Potassium Level 4.4 mmol/L (3.5-5.1) Chloride Level 103 mmol/L (98-107) Carbon Dioxide Level 27 mmol/L (21-32) Anion Gap 8 (6-14) Blood Urea Nitrogen 10 mg/dL (7-20) Creatinine 0.9 mg/dL (0.6-1.0) Estimated GFR (Cockcroft-Gault) 59.9 Glucose Level 123 mg/dL (70-99) Calcium Level 8.7 mg/dL (8.5-10.1) 25-Hydroxy Vitamin D Total 48.6 ng/mL (30-100) Comment Review of Relevant I have reviewed the following items ronnie (where applicable) has been applied. Labs Laboratory Tests Test 12/15/17 04:45 12/15/17 08:25 12/16/17 02:55 White Blood Count 10.6 x10^3/uL (4.0-11.0) 6.4 x10^3/uL (4.0-11.0) Red Blood Count 3.95 x10^6/uL (3.50-5.40) 3.80 x10^6/uL (3.50-5.40) Hemoglobin 13.9 g/dL (12.0-15.5) 13.7 g/dL (12.0-15.5) Hematocrit 39.3 % (36.0-47.0) 38.2 % (36.0-47.0) Mean Corpuscular Volume 99 fL (79-100) 101 fL (79-100) Mean Corpuscular Hemoglobin 35 pg (25-35) 36 pg (25-35) Mean Corpuscular Hemoglobin Concent 35 g/dL (31-37) 36 g/dL (31-37) Red Cell Distribution Width 12.5 % (11.5-14.5) 12.6 % (11.5-14.5) Platelet Count 192 x10^3/uL (140-400) 155 x10^3/uL (140-400) Neutrophils (%) (Auto) 86 % (31-73) 76 % (31-73) Lymphocytes (%) (Auto) 7 % (24-48) 14 % (24-48) Monocytes (%) (Auto) 7 % (0-9) 8 % (0-9) Eosinophils (%) (Auto) 0 % (0-3) 1 % (0-3) Basophils (%) (Auto) 0 % (0-3) 1 % (0-3) Neutrophils # (Auto) 9.1 x10^3uL (1.8-7.7) 4.8 x10^3uL (1.8-7.7) Lymphocytes # (Auto) 0.7 x10^3/uL (1.0-4.8) 0.9 x10^3/uL (1.0-4.8) Monocytes # (Auto) 0.7 x10^3/uL (0.0-1.1) 0.5 x10^3/uL (0.0-1.1) Eosinophils # (Auto) 0.0 x10^3/uL (0.0-0.7) 0.1 x10^3/uL (0.0-0.7) Basophils # (Auto) 0.0 x10^3/uL (0.0-0.2) 0.1 x10^3/uL (0.0-0.2) Segmented Neutrophils % 74 % (35-66) Band Neutrophils % 13 % (0-9) Lymphocytes % 6 % (24-48) Monocytes % 7 % (0-10) Platelet Estimate Adequate (ADEQUATE) Sodium Level 133 mmol/L (136-145) 138 mmol/L (136-145) Potassium Level 3.2 mmol/L (3.5-5.1) 4.4 mmol/L (3.5-5.1) Chloride Level 93 mmol/L (98-107) 103 mmol/L (98-107) Carbon Dioxide Level 23 mmol/L (21-32) 27 mmol/L (21-32) Anion Gap 17 (6-14) 8 (6-14) Blood Urea Nitrogen 14 mg/dL (7-20) 10 mg/dL (7-20) Creatinine 0.9 mg/dL (0.6-1.0) 0.9 mg/dL (0.6-1.0) Estimated GFR (Cockcroft-Gault) 59.9 59.9 BUN/Creatinine Ratio 16 (6-20) Glucose Level 120 mg/dL (70-99) 123 mg/dL (70-99) Calcium Level 9.0 mg/dL (8.5-10.1) 8.7 mg/dL (8.5-10.1) Total Bilirubin 0.6 mg/dL (0.2-1.0) Aspartate Amino Transf (AST/SGOT) 37 U/L (15-37) Alanine Aminotransferase (ALT/SGPT) 56 U/L (14-59) Alkaline Phosphatase 68 U/L (46-116) Creatine Kinase 392 U/L (26-192) Total Protein 6.8 g/dL (6.4-8.2) Albumin 3.8 g/dL (3.4-5.0) Albumin/Globulin Ratio 1.3 (1.0-1.7) Urine Collection Type Unknown Urine Color Yellow Urine Clarity Clear Urine pH 6.0 Urine Specific [place] 1.010 Urine Protein Negative mg/dL (NEG-TRACE) Urine Glucose (UA) Negative mg/dL (NEG) Urine Ketones (Stick) 15 mg/dL (NEG) Urine Blood Negative (NEG) Urine Nitrite Negative (NEG) Urine Bilirubin Negative (NEG) Urine Urobilinogen Dipstick 0.2 mg/dL (0.2 mg/dL) Urine Leukocyte Esterase Trace (NEG) Urine RBC Occ /HPF (0-2) Urine WBC 1-4 /HPF (0-4) Urine Squamous Epithelial Cells Few /LPF Urine Transitional Epithelial Cells Mod /LPF Urine Renal Epithelial Cells Few /LPF Urine Bacteria Moderate /HPF (0-FEW) Urine Mucus Slight /LPF 25-Hydroxy Vitamin D Total 48.6 ng/mL (30-100) Laboratory Tests Test 12/16/17 02:55 White Blood Count 6.4 x10^3/uL (4.0-11.0) Red Blood Count 3.80 x10^6/uL (3.50-5.40) Hemoglobin 13.7 g/dL (12.0-15.5) Hematocrit 38.2 % (36.0-47.0) Mean Corpuscular Volume 101 fL (79-100) Mean Corpuscular Hemoglobin 36 pg (25-35) Mean Corpuscular Hemoglobin Concent 36 g/dL (31-37) Red Cell Distribution Width 12.6 % (11.5-14.5) Platelet Count 155 x10^3/uL (140-400) Neutrophils (%) (Auto) 76 % (31-73) Lymphocytes (%) (Auto) 14 % (24-48) Monocytes (%) (Auto) 8 % (0-9) Eosinophils (%) (Auto) 1 % (0-3) Basophils (%) (Auto) 1 % (0-3) Neutrophils # (Auto) 4.8 x10^3uL (1.8-7.7) Lymphocytes # (Auto) 0.9 x10^3/uL (1.0-4.8) Monocytes # (Auto) 0.5 x10^3/uL (0.0-1.1) Eosinophils # (Auto) 0.1 x10^3/uL (0.0-0.7) Basophils # (Auto) 0.1 x10^3/uL (0.0-0.2) Sodium Level 138 mmol/L (136-145) Potassium Level 4.4 mmol/L (3.5-5.1) Chloride Level 103 mmol/L (98-107) Carbon Dioxide Level 27 mmol/L (21-32) Anion Gap 8 (6-14) Blood Urea Nitrogen 10 mg/dL (7-20) Creatinine 0.9 mg/dL (0.6-1.0) Estimated GFR (Cockcroft-Gault) 59.9 Glucose Level 123 mg/dL (70-99) Calcium Level 8.7 mg/dL (8.5-10.1) 25-Hydroxy Vitamin D Total 48.6 ng/mL (30-100) Medications Current Medications Acetaminophen/ Hydrocodone Bitart (Lortab 5/325) 2 tab 1X ONCE PO Last administered on 12/15/17at 03:07; Start 12/15/17 at 03:00; Stop 12/15/17 at 03:01 ; Status DC Ondansetron HCl (Zofran Odt) 4 mg 1X ONCE PO Last administered on 12/15/17at 03 :07; Start 12/15/17 at 03:00; Stop 12/15/17 at 03:01; Status DC Fentanyl Citrate (Fentanyl 2ml Vial) 50 mcg 1X ONCE IV Last administered on at 04:50; Start 12/15/17 at 05:00; Stop 12/15/17 at 05:01; Status DC Sodium Chloride 1,000 ml @ 1,000 mls/hr 1X ONCE IV Last administered on at 04:51; Start 12/15/17 at 05:00; Stop 12/15/17 at 05:59; Status DC Fentanyl Citrate (Fentanyl 2ml Vial) 100 mcg STK-MED ONCE .ROUTE ; Start at 04:36; Stop 12/15/17 at 04:38; Status DC Sodium Chloride 1,000 ml @ 75 mls/hr [id number] IV Last administered on at 08:25; Start 12/15/17 at 05:00; Stop 12/16/17 at 04:59; Status DC Fentanyl Citrate (Fentanyl 2ml Vial) 50 mcg PRN Q2HR PRN IV SEVERE PAIN Last administered on 12/15/17at 13:07; Start 12/15/17 at 06:15; Stop 12/15/17 at 16:24 ; Status DC Influenza Virus Vaccine (Afluria Trivalent [id number] Syringe) 0.5 ml ONCE ONCE VAX IM ; Start 12/15/17 at 09:00; Stop 12/15/17 at 09:01; Status DC Acetaminophen/ Hydrocodone Bitart (Lortab 5/325) 1 tab PRN Q4HRS PRN PO MOD TO SEVERE PAIN, 1st CHOICE Last administered on 12/16/17at 09:01; Start 12/15/17 at 12:00 Aspirin (Children'S Aspirin) 81 mg DAILY PO Last administered on 12/16/17at 09: 00; Start 12/15/17 at 12:30 Losartan Potassium (Cozaar) 100 mg DAILY PO Last administered on 12/16/17at 09: 00; Start 12/15/17 at 12:30 Multivitamins (Thera M Plus) 1 tab DAILY PO Last administered on 12/16/17at 09: 00; Start 12/15/17 at 12:30 Hydrochlorothiazide (Hydrodiuril) 25 mg DAILY PO Last administered on at 09:00; Start 12/15/17 at 12:30 Acetaminophen (Tylenol) 650 mg PRN Q6HRS PRN PO FEVER; Start 12/15/17 at 12:15 Ondansetron HCl (Zofran) 4 mg PRN Q6HRS PRN IV NAUSEA/VOMITING; Start 12/15/17 at 12:15 Morphine Sulfate (Morphine Sulfate) 2 mg PRN Q2HR PRN IV SEVERE PAIN Last administered on 12/16/17at 06:48; Start 12/15/17 at 12:15 Tramadol HCl (Ultram) 50 mg PRN Q6HRS PRN PO MILD TO MODERATE PAIN; Start 12/15 at 12:15 Docusate Sodium (Colace) 100 mg PRN DAILY PRN PO CONSTIPATION; Start 12/15/17 at 12:15 Acetaminophen/ Hydrocodone Bitart (Lortab 5/325) 1 tab PRN Q4HRS PRN PO PAIN; Start 12/15/17 at 12:15; Status Cancel Oxycodone/ Acetaminophen (Percocet 5/325) 1 tab PRN Q4HRS PRN PO MOD TO SEVERE PAIN, 2nd CHOICE; Start 12/15/17 at 12:15 Potassium Chloride (Klor-Con) 40 meq 1X ONCE PO Last administered on at 17:43; Start 12/15/17 at 16:00; Stop 12/15/17 at 16:01; Status DC Active Scripts Active Reported Calcium + Vitamin D Tablet (Calcium Carbonate/Vitamin D3) 1 Each Tablet 1 Each PO Multivitamins (Multivitamin) 1 Each Tablet 1 Tab PO DAILY Children's Aspirin (Aspirin) 81 Mg Tab.chew 81 Mg PO Losartan-Hctz 100-25 Mg Tab (Losartan/Hydrochlorothiazide) 1 Each Tablet 1 Tab PO DAILY Vitals/I & O Vital Sign - Last 24 Hours 12/15/17 12/15/17 12/15/17 12/15/17 13:07 13:37 15:00 16:34 Temp 97.7 97.7 Pulse 97 Resp 20 B/P (MAP) 126/51 (76) Pulse Ox 98 O2 Delivery Room Air Room Air Nasal Cannula Room Air O2 Flow Rate 2.0 12/15/17 12/15/17 12/15/17 12/15/17 19:00 20:00 20:41 22:05 Temp 98.1 98.1 Pulse 81 Resp 20 B/P (MAP) 137/68 (91) Pulse Ox 92 O2 Delivery Nasal Cannula Nasal Cannula Room Air Room Air O2 Flow Rate 2.0 2.0 12/15/17 12/16/17 12/16/17 10/2/18 22:39 01:32 03:00 06:47 Temp 96.6 97.9 96.6 97.9 Pulse 79 71 Resp 20 18 B/P (MAP) 158/74 (102) 140/79 (99) Pulse Ox 100 100 O2 Delivery Nasal Cannula Room Air Nasal Cannula Room Air O2 Flow Rate 2.0 2.0 12/16/17 12/16/17 12/16/17 12/16/17 06:48 07:00 07:17 09:00 Temp 98.6 98.6 Pulse 84 84 Resp 18 B/P (MAP) 151/67 (95) 151/67 Pulse Ox 98 O2 Delivery Room Air Room Air Room Air 12/16/17 12/16/17 12/16/17 09:01 10:15 11:00 Temp 98.6 98.6 Pulse 79 Resp 18 B/P (MAP) 115/52 (73) Pulse Ox 98 96 96 O2 Delivery Room Air Room Air Room Air Intake and Output 12/15/17 12/15/17 12/16/17 15:00 23:00 07:00 Intake Total 300 ml Output Total 500 ml 1425 ml Balance -500 ml -1125 ml LUIS ALFREDO HAND MD Dec 16, 2017 12:27
[2017-12-16] MEDS: APIXABAN 2.5 MG TABLET. PO SCH ×2 (13:21→20:22)
[2017-12-16] MEDS: ANTI-COAG MONITOR BY PHARMACY. MC PRN (14:52)
[2017-12-16 15:00] VITALS: BP 131/56
[2017-12-16 19:15] VITALS: BP 135/69
[2017-12-16 23:07] VITALS: BP 149/72
[2017-12-17 02:57] VITALS: BP 145/72
[2017-12-17] MEDS: HYDROcodone/APAP 5/325MG 1 TAB TABLET PO PRN ×2 (02:58→08:30)
[2017-12-17] MEDS: MORPHINE SULFATE 2 MG/ML VIAL. IV PRN (05:14)
[2017-12-17 07:00] VITALS: BP 141/67
[2017-12-17] MEDS: MULTIVITAMIN with MINERAL TABLET. PO SCH (08:28)
[2017-12-17] MEDS: hydroCHLOROthiazide 25 MG TABLET PO SCH (08:28)
[2017-12-17] MEDS: ASPIRIN CHEWABLE 81 MG TABLET. PO SCH (08:28)
[2017-12-17] MEDS: LOSARTAN POTASSIUM 50 MG TABLET. PO SCH (08:29)
[2017-12-17] MEDS: APIXABAN 2.5 MG TABLET. PO SCH (08:30)
[2017-12-17 11:00] VITALS: BP 131/66
[2017-12-17] MEDS: ANTI-COAG MONITOR BY PHARMACY. MC PRN (11:10)
--- NOTE | 2017-12-17 11:30 | PDOC ---
ORTHO PROGRESS NOTES Subjective Her pain is "better today. She is sitting up in a chair. Vitals Vital Signs Date Time Temp Pulse Resp B/P (MAP) Pulse Ox O2 Delivery O2 Flow Rate FiO2 12/17/17 09:30 97 Room Air 2.0 12/17/17 08:30 12 12/17/17 08:29 79 141/67 12/17/17 07:00 97.9 97.9 Labs Laboratory Tests Test 12/16/17 02:55 White Blood Count 6.4 x10^3/uL (4.0-11.0) Red Blood Count 3.80 x10^6/uL (3.50-5.40) Hemoglobin 13.7 g/dL (12.0-15.5) Hematocrit 38.2 % (36.0-47.0) Mean Corpuscular Volume 101 fL (79-100) Mean Corpuscular Hemoglobin 36 pg (25-35) Mean Corpuscular Hemoglobin Concent 36 g/dL (31-37) Red Cell Distribution Width 12.6 % (11.5-14.5) Platelet Count 155 x10^3/uL (140-400) Neutrophils (%) (Auto) 76 % (31-73) Lymphocytes (%) (Auto) 14 % (24-48) Monocytes (%) (Auto) 8 % (0-9) Eosinophils (%) (Auto) 1 % (0-3) Basophils (%) (Auto) 1 % (0-3) Neutrophils # (Auto) 4.8 x10^3uL (1.8-7.7) Lymphocytes # (Auto) 0.9 x10^3/uL (1.0-4.8) Monocytes # (Auto) 0.5 x10^3/uL (0.0-1.1) Eosinophils # (Auto) 0.1 x10^3/uL (0.0-0.7) Basophils # (Auto) 0.1 x10^3/uL (0.0-0.2) Sodium Level 138 mmol/L (136-145) Potassium Level 4.4 mmol/L (3.5-5.1) Chloride Level 103 mmol/L (98-107) Carbon Dioxide Level 27 mmol/L (21-32) Anion Gap 8 (6-14) Blood Urea Nitrogen 10 mg/dL (7-20) Creatinine 0.9 mg/dL (0.6-1.0) Estimated GFR (Cockcroft-Gault) 59.9 Glucose Level 123 mg/dL (70-99) Calcium Level 8.7 mg/dL (8.5-10.1) 25-Hydroxy Vitamin D Total 48.6 ng/mL (30-100) Notes She is awake and alert and sitting in a chair. Normal motor and sensation distally. Assessment and Plan PT and OT as tolerated. Protected weightbearing with walker. She will need placement. From my standpoint, she will be discharged whenever this is set up. She should follow up with me in 2-3 weeks. SADAF CASTELLANOS II, MD Dec 17, 2017 11:30
--- NOTE | 2017-12-17 13:43 | PDOC ---
PROGRESS NOTES Chief Complaint Chief Complaint fall traumatic rt inferior ramus fx, pelvis and pain HTN hypokalemia chronic back pain plan: talked to dr. Luna cont pain control, dc lortab, told nurse to try percocet morphine iv prn talked to SW, need to go to Rehab, pt wants too PTOT evaluating dc eliquis, add lovenox for dvt ppx History of Present Illness History of Present Illness fu with ortho, cont home meds pt and ot and rehab is assist to stand SNU likely c/o pain when move Vitals Vitals Vital Signs Date Time Temp Pulse Resp B/P (MAP) Pulse Ox O2 Delivery O2 Flow Rate FiO2 12/17/17 11:00 98.5 73 16 131/66 (87) 99 Room Air 98.5 12/17/17 09:30 2.0 Physical Exam General: Alert, Oriented X3 Heart: Regular rate, No murmurs Lungs: Clear Abdomen: Soft, No tenderness Extremities: No edema, Other (dorsalis pedis 1+ and symmetric bilaterally) Skin: No rashes, No breakdown Comment Review of Relevant I have reviewed the following items ronnie (where applicable) has been applied. Labs Laboratory Tests Test 12/16/17 02:55 White Blood Count 6.4 x10^3/uL (4.0-11.0) Red Blood Count 3.80 x10^6/uL (3.50-5.40) Hemoglobin 13.7 g/dL (12.0-15.5) Hematocrit 38.2 % (36.0-47.0) Mean Corpuscular Volume 101 fL (79-100) Mean Corpuscular Hemoglobin 36 pg (25-35) Mean Corpuscular Hemoglobin Concent 36 g/dL (31-37) Red Cell Distribution Width 12.6 % (11.5-14.5) Platelet Count 155 x10^3/uL (140-400) Neutrophils (%) (Auto) 76 % (31-73) Lymphocytes (%) (Auto) 14 % (24-48) Monocytes (%) (Auto) 8 % (0-9) Eosinophils (%) (Auto) 1 % (0-3) Basophils (%) (Auto) 1 % (0-3) Neutrophils # (Auto) 4.8 x10^3uL (1.8-7.7) Lymphocytes # (Auto) 0.9 x10^3/uL (1.0-4.8) Monocytes # (Auto) 0.5 x10^3/uL (0.0-1.1) Eosinophils # (Auto) 0.1 x10^3/uL (0.0-0.7) Basophils # (Auto) 0.1 x10^3/uL (0.0-0.2) Sodium Level 138 mmol/L (136-145) Potassium Level 4.4 mmol/L (3.5-5.1) Chloride Level 103 mmol/L (98-107) Carbon Dioxide Level 27 mmol/L (21-32) Anion Gap 8 (6-14) Blood Urea Nitrogen 10 mg/dL (7-20) Creatinine 0.9 mg/dL (0.6-1.0) Estimated GFR (Cockcroft-Gault) 59.9 Glucose Level 123 mg/dL (70-99) Calcium Level 8.7 mg/dL (8.5-10.1) 25-Hydroxy Vitamin D Total 48.6 ng/mL (30-100) Microbiology 12/15/17 Urine Culture - Preliminary, Resulted 12/15/17 Urine Culture Result 1 (MORTEZA) - Preliminary, Resulted Medications Current Medications Acetaminophen/ Hydrocodone Bitart (Lortab 5/325) 2 tab 1X ONCE PO Last administered on 12/15/17at 03:07; Start 12/15/17 at 03:00; Stop 12/15/17 at 03:01 ; Status DC Ondansetron HCl (Zofran Odt) 4 mg 1X ONCE PO Last administered on 12/15/17at 03 :07; Start 12/15/17 at 03:00; Stop 12/15/17 at 03:01; Status DC Fentanyl Citrate (Fentanyl 2ml Vial) 50 mcg 1X ONCE IV Last administered on at 04:50; Start 12/15/17 at 05:00; Stop 12/15/17 at 05:01; Status DC Sodium Chloride 1,000 ml @ 1,000 mls/hr 1X ONCE IV Last administered on at 04:51; Start 12/15/17 at 05:00; Stop 12/15/17 at 05:59; Status DC Fentanyl Citrate (Fentanyl 2ml Vial) 100 mcg STK-MED ONCE .ROUTE ; Start at 04:36; Stop 12/15/17 at 04:38; Status DC Sodium Chloride 1,000 ml @ 75 mls/hr [id number] IV Last administered on at 08:25; Start 12/15/17 at 05:00; Stop 12/16/17 at 04:59; Status DC Fentanyl Citrate (Fentanyl 2ml Vial) 50 mcg PRN Q2HR PRN IV SEVERE PAIN Last administered on 12/15/17at 13:07; Start 12/15/17 at 06:15; Stop 12/15/17 at 16:24 ; Status DC Influenza Virus Vaccine (Afluria Trivalent [id number] Syringe) 0.5 ml ONCE ONCE VAX IM Last administered on 12/17/17at 05:23; Start 12/15/17 at 09:00; Stop 12/15/17 at 09:01; Status DC Acetaminophen/ Hydrocodone Bitart (Lortab 5/325) 1 tab PRN Q4HRS PRN PO MOD TO SEVERE PAIN, 1st CHOICE Last administered on 12/17/17at 08:30; Start 12/15/17 at 12:00; Stop 12/17/17 at 11:26; Status DC Aspirin (Children'S Aspirin) 81 mg DAILY PO Last administered on 12/17/17 08: 28; Start 12/15/17 at 12:30 Losartan Potassium (Cozaar) 100 mg DAILY PO Last administered on 12/17/17 08: 29; Start 12/15/17 at 12:30 Multivitamins (Thera M Plus) 1 tab DAILY PO Last administered on 12/17/17 08: 28; Start 12/15/17 at 12:30 Hydrochlorothiazide (Hydrodiuril) 25 mg DAILY PO Last administered on 08:28; Start 12/15/17 at 12:30 Acetaminophen (Tylenol) 650 mg PRN Q6HRS PRN PO FEVER; Start 12/15/17 at 12:15 Ondansetron HCl (Zofran) 4 mg PRN Q6HRS PRN IV NAUSEA/VOMITING; Start 12/15/17 at 12:15 Morphine Sulfate (Morphine Sulfate) 2 mg PRN Q2HR PRN IV SEVERE PAIN Last administered on 12/17/17at 05:14; Start 12/15/17 at 12:15 Tramadol HCl (Ultram) 50 mg PRN Q6HRS PRN PO MILD PAIN; Start 12/15/17 at 12:15 Docusate Sodium (Colace) 100 mg PRN DAILY PRN PO CONSTIPATION; Start 12/15/17 at 12:15 Acetaminophen/ Hydrocodone Bitart (Lortab 5/325) 1 tab PRN Q4HRS PRN PO PAIN; Start 12/15/17 at 12:15; Status Cancel Oxycodone/ Acetaminophen (Percocet 5/325) 1 tab PRN Q4HRS PRN PO MOD TO SEVERE PAIN, 2nd CHOICE; Start 12/15/17 at 12:15 Potassium Chloride (Klor-Con) 40 meq 1X ONCE PO Last administered on at 17:43; Start 12/15/17 at 16:00; Stop 12/15/17 at 16:01; Status DC Apixaban (Eliquis) 2.5 mg BID PO Last administered on 12/17/17at 08:30; Start 12/16/17 at 13:00 Info (Anti-Coagulation Monitoring By Pharmacy) 1 each PRN DAILY PRN MC SEE COMMENTS Last administered on 12/17/17at 11:10; Start 12/16/17 at 12:30 Active Scripts Active Reported Calcium + Vitamin D Tablet (Calcium Carbonate/Vitamin D3) 1 Each Tablet 1 Each PO Multivitamins (Multivitamin) 1 Each Tablet 1 Tab PO DAILY Children's Aspirin (Aspirin) 81 Mg Tab.chew 81 Mg PO Losartan-Hctz 100-25 Mg Tab (Losartan/Hydrochlorothiazide) 1 Each Tablet 1 Tab PO DAILY Vitals/I & O Vital Sign - Last 24 Hours 12/16/17 12/16/17 12/16/17 12/16/17 15:00 17:42 19:15 20:00 Temp 97.7 97.9 97.7 97.9 Pulse 72 95 Resp 20 18 B/P (MAP) 131/56 (81) 135/69 (91) Pulse Ox 98 98 97 O2 Delivery Room Air Room Air Room Air Room Air 12/16/17 12/16/17 12/16/17 12/17/17 20:19 22:20 23:07 02:57 Temp 98.4 98.3 98.4 98.3 Pulse 87 80 Resp 18 18 18 18 B/P (MAP) 149/72 (97) 145/72 (96) Pulse Ox 97 99 O2 Delivery Room Air Room Air Room Air Nasal Cannula O2 Flow Rate 2.0 12/17/17 12/17/17 12/17/17 12/17/17 02:58 04:02 05:14 06:14 Resp 18 16 18 18 O2 Delivery Room Air Room Air Room Air 12/17/17 12/17/17 12/17/17 12/17/17 07:00 08:00 08:29 08:30 Temp 97.9 97.9 Pulse 79 79 Resp 16 12 B/P (MAP) 141/67 (91) 141/67 Pulse Ox 97 O2 Delivery Room Air Room Air Room Air 12/17/17 12/17/17 09:30 11:00 Temp 98.5 98.5 Pulse 73 Resp 16 B/P (MAP) 131/66 (87) Pulse Ox 97 99 O2 Delivery Room Air Room Air O2 Flow Rate 2.0 Intake and Output 12/16/17 12/16/17 12/17/17 15:00 23:00 07:00 Intake Total 120 ml 3244.95 ml Output Total 800 ml 850 ml Balance -680 ml 2394.95 ml TONY ECHAVARRIA MD Dec 17, 2017 13:43
[2017-12-17 15:00] VITALS: BP 136/63
[2017-12-17] MEDS: oxyCODONE/APAP 5/325 1 TAB TABLET PO PRN (16:50)
[2017-12-17] MEDS: ENOXAPARIN 40 MG/0.4 ML SYRINGE. SQ SCH (16:50)
[2017-12-17 19:00] VITALS: BP 153/61
[2017-12-17 23:00] VITALS: BP 151/52
[2017-12-18 03:00] VITALS: BP 155/61
[2017-12-18] MEDS: oxyCODONE/APAP 5/325 1 TAB TABLET PO PRN ×2 (03:06→12:59)
[2017-12-18 05:54] LABS: BASO % 1 % (0-3); EOS # 0.1 x10^3/uL (0.0-0.7); EOS % 3 % (0-3); HEMATOCRIT 35.2 % (36.0-47.0); HEMOGLOBIN 12.5 g/dL (12.0-15.5); LYMPH # 1.1 x10^3/uL (1.0-4.8); LYMPH % 23 % (24-48); MEAN CORPUSCULAR HEMOGLOBIN 36 pg (25-35); MEAN CORPUSCULAR HGB CONC 36 g/dL (31-37); MEAN CORPUSCULAR VOLUME 101 fL (79-100); MONO # 0.5 x10^3/uL (0.0-1.1); MONO % 12 % (0-9); NEUT # 2.9 x10^3uL (1.8-7.7); NEUT % 62 % (31-73); PLATELET COUNT 166 x10^3/uL (140-400); RED CELL DISTRIBUTION WIDTH 12.4 % (11.5-14.5); WHITE BLOOD COUNT 4.7 x10^3/uL (4.0-11.0)
[2017-12-18 06:04] LABS: CALCIUM 8.9 mg/dL (8.5-10.1); CREATININE 0.8 mg/dL (0.6-1.0); GFR 68.7
[2017-12-18 07:00] VITALS: BP 138/58
[2017-12-18] MEDS: LOSARTAN POTASSIUM 50 MG TABLET. PO SCH (08:22)
[2017-12-18] MEDS: MULTIVITAMIN with MINERAL TABLET. PO SCH (08:22)
[2017-12-18] MEDS: hydroCHLOROthiazide 25 MG TABLET PO SCH (08:22)
[2017-12-18] MEDS: ASPIRIN CHEWABLE 81 MG TABLET. PO SCH (08:22)
[2017-12-18] MEDS ORDERED: POTASSIUM CHLORIDE 20 MEQ TABLET.ER. PO ONE (08:45)
[2017-12-18] MEDS ORDERED: POLYETHYLENE GLYCOL 3350 17 GM PACKET. PO SCH (09:00)
[2017-12-18 11:00] VITALS: BP 121/70
[2017-12-18] MEDS ORDERED: LOSA50TA2 PO (11:44)
[2017-12-18] MEDS ORDERED: OXYC1TAB7 PO (11:44)
--- NOTE | 2017-12-18 11:46 | DISCH ---
DISCHARGE DISCHARGE INFORMATION: DISCHARGE DATE: Dec 18, 2017 FINAL DIAGNOSIS pelvic fracture CONDITION ON DISCHARGE: Stable CODE STATUS: Code Status: Full GROUP HOME: SNF STAY <30 DAYS: Yes POST DISCHARGE ORDERS: ACTIVITY ORDERS: Activity as tolerated WEIGHT BEARING STATUS: As tolerated DIET AFTER DISCHARGE: Cardiac FOLLOW-UP: PHYSICIAN FOLLOW-UP: dr. Luna in 2 weeks TREATMENT/EQUIPMENT ORDERS: Physical Therapy For: Evalulation/Treatment Occupational Therapy For: Evaluation/Treatment DISCHARGE MEDICATIONS: Home Meds Active Scripts Oxycodone Hcl/Acetaminophen (OXYCODONE-ACETAMINOPHEN 5-325) 1 Each Tablet, 1 TAB PO PRN Q4HRS PRN for MOD TO SEVERE PAIN, 2nd CHOICE, #10 TAB Prov:TONY ECHAVARRIA MD 12/18/17 Losartan Potassium (COZAAR) 50 Mg Tablet, 100 MG PO DAILY for 30 Days, #60 TAB Prov:TONY ECHAVARRIA MD 12/18/17 Reported Medications Calcium Carbonate/Vitamin D3 (CALCIUM + VITAMIN D TABLET) 1 Each Tablet, 1 EACH PO, TAB 12/15/17 Multivitamin (MULTIVITAMINS) 1 Each Tablet, 1 TAB PO DAILY, #90 TAB 3 Refills 12/15/17 Aspirin (Children's Aspirin) 81 Mg Tab.chew, 81 MG PO, TAB.CHEW 12/15/17 Discontinued Reported Medications Losartan/Hydrochlorothiazide (LOSARTAN-HCTZ 100-25 MG TAB) 1 Each Tablet, 1 TAB PO DAILY, #30 TAB 5 Refills 12/15/17 TONY ECHAVARRIA MD Dec 18, 2017 11:46
[2017-12-18] MEDS: ENOXAPARIN 40 MG/0.4 ML SYRINGE. SQ SCH (14:41)
--- NOTE | 2017-12-18 15:01 | PDOC3 ---
Discharge Summary [facility] Date of Admission: Dec 15, 2017 Discharge Date: Dec 18, 2017 Admitting Diagnosis fall traumatic rt inferior ramus fx, pelvis and pain HTN hypokalemia chronic back pain plan: talked to dr. Cheryl mercado pain control, dc lortab, told nurse to try percocet morphine iv prn talked to SW, need to go to Rehab, pt wants too PTOT evaluating dc eliquis, add lovenox for dvt ppx History of Present Illness History of Present Illness fu with ortho, cont home meds pt and ot and rehab is assist to stand SNU likely c/o pain when move Vitals Vitals Vital Signs Date Time Temp Pulse Resp B/P (MAP) Pulse Ox O2 Delivery O2 Flow Rate FiO2 12/17/17 11:00 98.5 73 16 131/66 (87) 99 Room Air 98.5 12/17/17 09:30 2.0 Physical Exam Brief Hospital Course Patient is a 82 year old female brought in by ambulance with a chief complaint of mechanical fall.. poor historian. Pt said she was standing on the tile in the [place] ,then fell on the floor, cannot tell me how or hit where. She denies syncope, has some bruise on knee and rt elbow. She crawled to get phone to call her daughter who helped her to the bed, and called EMS. pt has severe pelvic pain and could not stand up. Denies fever, chills, sob, chest pain. CT showed rt inferior ramus fx. Dirty UA, denies dysuria, has frequent urination but said drinks lots of water. denies urgency. Ortho consulted, no sx. percocet for pain control. stable to dc to rehab. lovenox for dvt ppx while in rehab. dc time 35min General: Alert, Oriented X3 Heart: Regular rate, No murmurs Lungs: Clear Abdomen: Soft, No tenderness Extremities: No edema, Other (dorsalis pedis 1+ and symmetric bilaterally) Skin: No rashes, No breakdown Disposition rehab. CONDITION AT DISCHARGE: Improved Scheduled Losartan Potassium (Cozaar), 100 MG PO DAILY Multivitamin (Multivitamins), 1 TAB PO DAILY, (Reported) Scheduled PRN Oxycodone Hcl/Acetaminophen (Oxycodone-Acetaminophen 5-325), 1 TAB PO PRN Q4HRS PRN for MOD TO SEVERE PAIN, 2nd CHOICE Miscellaneous Medications Aspirin (Children's Aspirin), 81 MG PO, (Reported) Calcium Carbonate/Vitamin D3 (Calcium + Vitamin D Tablet), 1 EACH PO, (Reported) Discontinued Medications Losartan/Hydrochlorothiazide (Losartan-Hctz 100-25 Mg Tab), 1 TAB PO DAILY, ( Reported) TONY ECHAVARRIA MD Dec 18, 2017 15:01
== END 2017-12-18 15:40 | DRG 536 ==
LOC: ER 01:34 → 4 NORTH 04:40
PROVIDERS: ADMIT Internal Medicine; ATTEND Internal Medicine
DX: S32.591A Other specified fracture of right pubis, initial encounter for closed fracture (principal); E87.6 Hypokalemia; G89.29 Other chronic pain; I10 Essential (primary) hypertension; M54.9 Dorsalgia, unspecified; W01.0XXA Fall on same level from slipping, tripping and stumbling without subsequent striking against object, initial encounter; Y93.89 Activity, other specified; Y92.89 Other specified places as the place of occurrence of the external cause; Y99.8 Other external cause status; Z88.8 Allergy status to other drugs, medicaments and biological substances; Z90.710 Acquired absence of both cervix and uterus; Z82.49 Family history of ischemic heart disease and other diseases of the circulatory system
CPT/HCPCS: 36415; 72192; 73502; 80048; 80053; 81001; 82306; 82550; 85007; 85025; 87086; 87186; 90471; 90756; 96361; 96374; J1650; J2270; J3010; J7030; Q0162; 97110; 97116; 97530; 97535; 99285-25; Q2035

== ENCOUNTER → 2018-04-10 | Outpatient (CLI) | payer MEDICARE ==
[~2018-04-10] MED LIST: ASPI81TA59 PO; CALC-98 PO; LOSA-73 PO; LOSA1TAB22 PO; MULT1TAB52 PO; OXYC1TAB7 PO
--- NOTE | 2018-04-10 16:24 | KCIC ---
BILATERAL DUPLEX CAROTID SONOGRAPHY History: Left-sided carotid artery disease. COMPARISON: Carotid Doppler ultrasound, April 10, 2017. Technique: Duplex sonography of the cervical portion of both carotid arteries was performed. Real-time grayscale, color flow Doppler, and Doppler spectral waveform analysis is performed. Findings: Right side: Peak systolic flow velocity of the CCA is 67 cm/sec. Peak systolic flow velocity of the ICA is 65 cm/sec. The ICA/CCA ratio is 1. Peak end diastolic flow velocity of the ICA is 18 cm/sec. The peak systolic velocity of the ECA is 159 cm/sec. Mild heterogeneous plaque in the carotid bulb and ICA. Left side: Peak systolic flow velocity of the CCA is 68 cm/sec. Peak systolic flow velocity of the ICA is 143 cm/sec. The ICA/CCA ratio is 2. Peak end diastolic flow velocity of the ICA is 33 cm/sec. Peak systolic flow velocity of the ECA is 114 cm/sec. There is moderate echogenic plaque in the carotid bulb. Vertebral arteries: Bilateral vertebral arteries demonstrate antegrade flow. IMPRESSION: 1. Findings indicate a 50-69% stenosis of the mid left internal carotid artery. 2. No hemodynamically significant stenosis in the right internal carotid artery. PQRS Compliance Statement - Stenosis calculations for CT, MR and conventional angiography are based upon measurement of the distal ICA diameter in accordance with the NASCET methodology. Stenosis calculations for carotid ultrasound studies are derived from validated velocity criteria which are known to correlate with the NASCET methodology. Electronically signed by: Jamison Rangel MD (04/10/2018 4:20 PM) [id number]
--- NOTE | 2018-04-10 17:34 | KCIC ---
Bilateral digital screening mammograms: Reason for examination: Routine screening. Comparison is made to previous studies dated 04/10/2017 and 01/18/2016. Interpretation was made with the benefit of CAD. The skin and nipples show no abnormalities. No abnormal axillary lymph nodes are seen. The breast parenchyma shows scattered fibroglandular density. (Breast density: Category B.) There are no new dominant masses, suspicious calcifications or architectural distortions. Some benign calcifications are present. Impression: No evidence of malignancy. Recommend routine screening. BI-RADS category 2: Benign "Our facility is accredited by the [employer] Mammography Program." This patient's information has been entered into a reminder system for the patient to be notified with the results of her examination and a target date for the next mammogram. Electronically signed by: Niharika Lloyd MD (04/10/2018 5:29 PM) [id number]
== END | disposition home or self-care (01) ==
LOC: KCIC US 14:22
PROVIDERS: ATTEND Family Medicine
DX: Z12.31 Encounter for screening mammogram for malignant neoplasm of breast (principal); Z13.6 Encounter for screening for cardiovascular disorders; I65.23 Occlusion and stenosis of bilateral carotid arteries
CPT/HCPCS: 77067; 93880

== ENCOUNTER → 2018-09-18 | Outpatient (CLI) | payer MEDICARE ==
--- NOTE | 2018-09-18 14:43 | KCIC ---
Bilateral arterial duplex ultrasound 09/18/2018 INDICATION: Decreased pulses, bilateral feet COMPARISON STUDY: None FINDINGS: Ultrasound evaluation of the major arteries of the bilateral lower extremities was performed including color Doppler imaging spectral analysis. Right lower extremity: Dense calcification appears be present in the right common femoral artery. Elevated velocities up to 195 cm/s also noted here. Profunda artery appears grossly patent. Superficial femoral artery appears grossly patent. Popliteal artery appears grossly patent. Somewhat blunted flow in the right dorsalis pedis and posterior tibial artery are seen, though these vessels remain grossly patent. Left lower extremity: Calcification and mild increased velocities left common femoral artery seen measuring up to 204 cm/s. There is a shift to monophasic waveforms in the remainder of the SFA. Distal SFA and popliteal artery demonstrate no evidence of high-grade stenosis. The dorsalis pedis and posterior tibial arteries appear grossly patent. IMPRESSION: Dense calcification involving the right common femoral artery with mild elevation of velocities. Mild to moderate stenosis is possible. Calcification elevated velocities within the left common femoral artery with blunting of more distal waveforms suggesting moderate stenosis. Consider CT angiography for further characterization as clinically indicated. Electronically signed by: Jerrod Aguero MD (09/18/2018 2:40 PM) [id number]
== END | disposition home or self-care (01) ==
LOC: KCIC US 12:07
PROVIDERS: ATTEND Family Medicine
DX: I70.203 Unspecified atherosclerosis of native arteries of extremities, bilateral legs (principal)
CPT/HCPCS: 93925

== ENCOUNTER → 2019-05-24 | Outpatient (CLI) | payer MEDICARE ==
--- NOTE | 2019-05-24 14:32 | KCIC ---
EXAM: Carotid Doppler sonogram. HISTORY: Left-sided carotid artery disease. TECHNIQUE: Joseph scale and color Doppler sonographic evaluation of the neck with spectral waveform analysis was performed and static images are submitted for review. FINDINGS: There is mild atherosclerotic plaque throughout the right common carotid artery and external carotid artery. The peak systolic velocity within the right common carotid artery is 150 cm/sec. The peak systolic velocity within the right internal carotid artery is 99 cm/sec and the end diastolic velocity within the right internal carotid artery is 26 cm/sec. The right ICA/CCA ratio is 0.66. There is moderate atherosclerotic plaque involving the distal left common carotid artery, carotid bulb and proximal internal and external carotid arteries. The peak systolic velocity within the left common carotid artery is 133 cm/sec. The peak systolic velocity within the left internal carotid artery is 196 cm/sec and the end diastolic velocity within the left internal carotid artery is 42 cm/sec. The left ICA/CCA ratio is 2.39. There is normal antegrade flow within both vertebral arteries. IMPRESSION: 1. Doppler findings suggesting 50-69 percent stenosis involving the left ICA. This is increased compared to a prior study dated 04/10/2018. There is no Doppler evidence of greater than 50 percent stenosis involving the right ICA. 2. Moderate vascular plaque involving the distal left common carotid artery, carotid bulb and proximal internal and external carotid arteries. There is mild plaque involving the right common carotid artery and external carotid artery. PQRS Compliance Statement - Stenosis calculations for CT, MR and conventional angiography are based upon measurement of the distal ICA diameter in accordance with the NASCET methodology. Stenosis calculations for carotid ultrasound studies are derived from validated velocity criteria which are known to correlate with the NASCET methodology. Electronically signed by: Sweta Kim MD (05/24/2019 2:29 PM) [place] [id number]
--- NOTE | 2019-05-24 16:24 | KCIC ---
EXAM: Dual energy x-ray absorptiometry (DEXA). HISTORY: Postmenopausal female presents for osteoporosis screening. COMPARISON: None. TECHNIQUE: Dual energy x-ray absorptiometry of the lumbar spine and left hip was performed. Calculation of bone mineral density based on standard deviations above or below the expected young adult normal value (T-score) was completed. FINDINGS: The average bone mineral density in the 1st through 4th lumbar vertebrae is 1.032 g/cmxcm, corresponding with a T-score of -0.1. The average total bone mineral density in the left hip is 0.750 g/cmxcm, corresponding with a T-score of -1.6. IMPRESSION: 1. Osteopenia measured at the left hip. 2. Normal bone mineral density measured at the lumbar spine. Note: Definitions established by the World Health Organization: 1. Normal: T-score is -1.0 or above. 2. Osteopenia: T-score is between -1.0 and -2.5 . 3. Osteoporosis: T-score is -2.5 or below. Electronically signed by: Sweta Kim MD (05/24/2019 4:21 PM) [id number]
--- NOTE | 2019-05-24 16:34 | KCIC ---
Bilateral digital screening mammograms: Reason for examination: Routine screening. Comparison is made to previous studies dated 04/10/2018 and 04/10/2017. Interpretation was made with the benefit of CAD. The skin and nipples show no abnormalities. No abnormal axillary lymph nodes are seen. The breast parenchyma shows scattered fibroglandular density. (Breast density: Category B.) There are no dominant masses, suspicious calcifications or architectural distortions. Some benign calcifications are present. Impression: No evidence of malignancy. Recommend routine screening. BI-RADS category 2: Benign "Our facility is accredited by the [employer] Mammography Program." This patient's information has been entered into a reminder system for the patient to be notified with the results of her examination and a target date for the next mammogram. Electronically signed by: Niharika Lloyd MD (05/24/2019 4:31 PM) [id number]
== END ==
LOC: KCIC DEXA 13:14
PROVIDERS: ATTEND Family Medicine
DX: Z12.31 Encounter for screening mammogram for malignant neoplasm of breast (principal); I65.23 Occlusion and stenosis of bilateral carotid arteries; I70.293 Other atherosclerosis of native arteries of extremities, bilateral legs; I77.9 Disorder of arteries and arterioles, unspecified; Z78.0 Asymptomatic menopausal state
CPT/HCPCS: 77067; 77080; 93880

== ENCOUNTER → 2020-11-30 | Outpatient (CLI) | payer MEDICARE ==
[~2020-11-30] MED LIST changes: +MULT-445 PO; -MULT1TAB52 PO
--- NOTE | 2020-11-30 12:18 | KCIC ---
Bilateral digital screening mammograms with 3-D tomosynthesis: Reason for examination: Routine screening. Comparison is made to previous studies dated back to 11/03/2014. Bilateral mammograms in CC and oblique projections were obtained with 2-D imaging and 3-D tomosynthes is imaging on a Siemens Inspiration unit and reviewed on the workstation. Interpretation was made wit h the benefit of CAD. The skin and nipples show no abnormalities. No abnormal axillary lymph nodes are seen. The breast par enchyma shows scattered fatty and fibroglandular density. (Breast density: Category B.) There are sma ll nodular parenchymal asymmetries which are stable. There are no new dominant masses, suspicious franchesca cifications or architectural distortion. Benign calcifications are present. Impression: No evidence of malignancy. Recommend routine screening. BI-RAD Category 2: Benign. "Our facility is accredited by the [employer] Mammography Program." This patient's information has been entered into a reminder system for the patient to be notified wit h the results of her examination and a target date for the next mammogram. Electronically signed by: Niharika Lloyd MD (11/30/2020 12:16 PM) [id number]
== END ==
LOC: KCIC MAMMO 10:55
PROVIDERS: ATTEND Family Medicine
DX: Z12.31 Encounter for screening mammogram for malignant neoplasm of breast (principal)
CPT/HCPCS: 77063; 77067